=== PATIENT | female | born 2000 | race African-American/Black ===

== ENCOUNTER 2021-04-03 10:01 | Outpatient (CLI) | payer OTHER | END 2021-04-03 10:02 | disposition home or self-care (01) | LOC: CSHULT 10:01 | PROVIDERS: ATTEND Family Medicine | DX: Z34.82 Encounter for supervision of other normal pregnancy, second trimester (principal); Z3A.27 27 weeks gestation of pregnancy | CPT/HCPCS: 76805 ==

== ENCOUNTER 2021-06-07 13:24 | Day surgery (SDC) | payer OTHER ==
[2021-06-07 14:14] VITALS: BMI 31.6
[2021-06-07] MEDS ORDERED: Acetaminophen 500 MG TAB PO SCH (14:30)
[2021-06-07] MEDS ORDERED: Iron Sucrose Complex 500 MG in Sodium Chloride 0.9% 250 ML 250 ML IVPB SCH (15:00)
[2021-06-07 19:37] LABS: #Monocytes 0.9 10x3/uL (0.0-1.1); #Neutrophils 8.4 10x3/uL (1.5-8.4); %Basophils 0.1 % (0.0-2.0); %Eosinophils 0.3 % (0.0-6.0); %Lymphocytes 15.8 % (18.0-47.0); %Monocytes 8.2 % (0.0-10.0); %Neutrophils 75.1 % (40.0-75.0); Hemoglobin 8.6 g/dL (12.0-15.5); Mean Corpuscular HGB CONC 32.2 g/dL (32.0-36.0); Mean Corpuscular Volume 80.7 fl (81.6-98.3); Platelet Count 152 10x3/uL (150-450); RBC Distribution Width 17.4 % (11.5-14.5); Red Blood Cell (RBC) Count 3.31 10x6/uL (3.90-5.03); White Blood Cell (WBC) Count 11.1 10x3/uL (3.5-10.5)
[2021-06-07] MEDS ORDERED: hydrALAZINE 20 MG/ML VIAL ONE (19:41)
[2021-06-07 19:46] LABS: ALT (SGPT) 7 U/L (8-55); AST (SGOT) 8 U/L (5-34); Albumin 3.1 g/dL (3.5-5.0); Alkaline Phosphatase 65 U/L (40-110); Anion Gap 11 mmol/L (10-20); BUN (Urea Nitrogen) 8 mg/dL (7.0-18.7); Bilirubin, Total 0.1 mg/dL (0.2-1.2); Calc. Creatinine Clearance 183 mL/min (70-130); Carbon Dioxide 24 mmol/L (22-29); Chloride 108 mmol/L (98-107); Globulin 2.8 g/dL (2.4-3.5); Glucose 96 mg/dL (70-105); Potassium 3.3 mmol/L (3.5-5.1); Protein, Total 5.9 g/dL (6.0-8.3); Sodium 140 mmol/L (136-145)
[2021-06-07 20:43] LABS: Creatinine, Urine 56.46 mg/dL (47-110)
[2021-06-07] MEDS ORDERED: Promethazine HCl 25 MG/ML VIAL IM PRN (21:21)
[2021-06-07] MEDS ORDERED: hydrALAZINE 20 MG/ML VIAL SLOW IVP PRN (21:21)
[2021-06-07] MEDS ORDERED: Ondansetron PF 4 MG/2 ML Vial IVP PRN (21:21)
[2021-06-07] MEDS ORDERED: Acetaminophen 325 MG TAB PO PRN (21:28)
[2021-06-08] MEDS ORDERED: NIFEdipine XL 30 MG TAB PO SCH (10:00)
[2021-06-08 10:46] VITALS: BP 137/87
== END 2021-06-08 11:00 | disposition home or self-care (01) ==
LOC: CSHLD/OP 13:24
PROVIDERS: ATTEND Family Medicine
DX: O99.013 Anemia complicating pregnancy, third trimester (principal); O99.891 Other specified diseases and conditions complicating pregnancy; R03.0 Elevated blood-pressure reading, without diagnosis of hypertension; Z3A.36 36 weeks gestation of pregnancy
CPT/HCPCS: 80053; 82570; 84156; 85025; J0360; J1756; J7050